=== PATIENT | female | born 1930 | race Caucasian/White ===

== ENCOUNTER 2017-02-16 05:28 | Day surgery (SDC) | payer OTHER ==
[~2017-02-16] VITALS: Ht 165.1 cm; Wt 58.9 kg
[~2017-02-16 05:28] MED LIST: ALBUTEROL SULF8.5 GM IH; APRESOLINE50 MG PO; AVAPRO150 MG PO; Anusol HC,Proctozone PR; Apresoline PO; Ascorbic Acid,Ester- PO; CALTRATE 6001 TABLET PO; CARDIZEM CD240 MG PO; CARTIA XT120 MG PO; CARTIA XT240 MG PO; CENTRUM SILVER1 EAC3 PO; COMBIVENT200 INHALA IH; COUMADIN5 MG PO; Cardizem CD,Cartia X PO; Coumadin Protocol PO; Coumadin,Jantoven PO; Cozaar PO; Dulcolax PO; DuoNeb IH; FLEXERIL10 MG PO; FUROSEMIDE20 MG PO; Folvite PO; HYDROCHLOROTHIA50 MG PO; LASIX20 MG PO; LORTAB 5-500 T1 EACH PO; LYRICA75 MG PO; Levaquin PO; Levothroid,Synthroid PO; Lovenox SC; MIRALAX17 GM PO; MUCUS RELIEF600 MG PO; Oscal 500 w/Vitamin PO; PRAVACHOL20 MG PO; ROBAXIN500 MG PO; ROLAIDS PO; STIOLTO RESPIMAT4 GM IH; STOOL SOFTENER1 EAC2 PO; STOOL SOFTENER100 M1 PO; SYNTHROID112 MCG PO; Senokot S,Pericolace PO; TESSALON PERLE100 MG PO; TOPROL XL100 MG PO; TYLENOL EXTRA500 MG PO; TYLENOL REGULA325 MG PO; Theragran PO; Toprol XL PO; Tylenol Extra Streng PO; ULTRAM50 MG PO; Ultram PO; XALATAN2.5 ML BOTH EYES; Xalatan 0.005% Ophth BOTH EYES; ZANTAC150 MG PO; ZITHROMAX250 MG PO
[2017-02-16 06:00] VITALS: BP 186/93
[2017-02-16 07:05] LABS: INTER. NORMALIZED RATIO 1.6; PROTHROMBIN TIME 17.9 SEC (10.2-12.9)
[2017-02-16 09:33] VITALS: BP 174/84
[2017-02-16 10:15] VITALS: BP 132/96
== END 2017-02-16 10:25 | disposition home or self-care (01) ==
LOC: SDC 05:28
PROVIDERS: Ophthalmology
DX: H43.11 Vitreous hemorrhage, right eye (principal); H57.8 Other specified disorders of eye and adnexa; J44.9 Chronic obstructive pulmonary disease, unspecified; I10 Essential (primary) hypertension; E03.9 Hypothyroidism, unspecified; K21.9 Gastro-esophageal reflux disease without esophagitis; I48.91 Unspecified atrial fibrillation; E78.5 Hyperlipidemia, unspecified; Z79.01 Long term (current) use of anticoagulants
CPT/HCPCS: 85610; J0690; J0713; J2405; J2795; J3300

== ENCOUNTER 2017-04-04 12:04 | Inpatient (IN) | payer OTHER ==
[~2017-04-04] VITALS: Ht 167.6 cm; Wt 61.7 kg
[~2017-04-04 12:04] MED LIST changes: +SYNTHROID125 MCG PO
[2017-04-04 14:18] LABS: BASOPHIL (%) 0.5 % (0-1); EOSINOPHIL (%) 1.7 % (0-5); EOSINOPHIL COUNT 0.1 K/uL (0-0.3); HEMATOCRIT 34.8 % (36.0-46.0); IMMATURE GRANULOCYTE (%) 2.6 % (0.0-0.7); LYMPHOCYTE (%) 9.6 % (15-42); LYMPHOCYTE COUNT 0.8 K/uL (1.0-2.8); MCH 33.8 PG (29.0-34.0); MCHC 34.5 G/DL (30.0-36.0); MONOCYTE (%) 9.4 % (3-12); MONOCYTE COUNT 0.7 K/uL (0-0.8); NEUTROPHIL (%) 76.2 % (45-76); NEUTROPHIL COUNT 5.9 K/uL (1.8-6.4); PLATELET COUNT 155 K/uL (156-360); RBC DIS.WIDTH-CV 17.4 % (11.8-14.6); RED BLOOD COUNT 3.55 M/uL (3.80-5.20); WHITE BLOOD COUNT 7.8 K/uL (4.1-10.2)
[2017-04-04 14:27] LABS: ALBUMIN 3.9 g/dL (3.2-4.8); CHLORIDE 91 mEq/L (99-109); INTER. NORMALIZED RATIO 2.4; POTASSIUM 4.2 mEq/L (3.7-5.4); PTT 34.5 SEC (25-37); SODIUM 127 mEq/L (136-147)
[2017-04-04 14:28] LABS: GLUCOSE 120 mg/dL (70-99)
[2017-04-04 14:29] LABS: TOTAL PROTEIN 6.7 g/dL (6.4-8.3)
[2017-04-04 14:32] LABS: ALKALINE PHOSPHATASE 94 IU/L (3-129); CREATININE 0.6 mg/dL (0.6-1.3); GFR ESTIMATE (CALCULATED) > 59 mL/min/
[2017-04-04 14:33] LABS: UREA NITROGEN (BUN) 13 mg/dL (9-23)
[2017-04-04 14:34] LABS: AST (GOT) 23 IU/L (2-34)
[2017-04-04 14:35] LABS: ALT (GPT) 16 IU/L (3-49)
[2017-04-04 14:38] LABS: TROP-I INTERPRETATION NEGATIVE; TROPONIN-I < 0.01 ng/mL (0.0-0.30)
[2017-04-04 14:59] LABS: APPEARANCE CLEAR ((CLEAR)); BILIRUBIN NEGATIVE; BLOOD NEGATIVE; COLOR STRAW ((YELLOW)); GLUCOSE (STRIP) NEGATIVE; KETONES NEGATIVE; LEUKOCYTES NEGATIVE; NITRITE NEGATIVE; PROTEIN (STRIP) NEGATIVE; SPECIFIC GRAVITY 1.009 (1.000-1.030); UCUL ADDED? NO; UROBILINOGEN 0.2 MG/DL (0.2-1.0)
[2017-04-04 15:52] LABS: ALBUMIN 3.8 g/dL (3.2-4.8); CHLORIDE 92 mEq/L (99-109); SODIUM 126 mEq/L (136-147)
[2017-04-04 15:54] LABS: GLUCOSE 135 mg/dL (70-99)
[2017-04-04 15:55] LABS: TOTAL PROTEIN 6.5 g/dL (6.4-8.3)
[2017-04-04 15:56] LABS: TOTAL BILIRUBIN 1.3 mg/dL (0.0-1.0)
[2017-04-04 15:58] LABS: ALKALINE PHOSPHATASE 91 IU/L (3-129); CREATININE 0.6 mg/dL (0.6-1.3); GFR ESTIMATE (CALCULATED) > 59 mL/min/
[2017-04-04 15:59] LABS: UREA NITROGEN (BUN) 11 mg/dL (9-23)
[2017-04-04 16:00] LABS: AST (GOT) 21 IU/L (2-34); DIRECT BILIRUBIN 0.5 mg/dL (0.0-0.3)
[2017-04-04 16:01] LABS: ALT (GPT) 16 IU/L (3-49)
[2017-04-04] MEDS ORDERED: DILTIAZEM 24HR240 MG PO (20:35)
[2017-04-04] MEDS ORDERED: LATANOPROST2.5 ML BOTH EYES (20:36)
[2017-04-04] MEDS ORDERED: COMBIGAN O20 DROP/5 RIGHT EYE (20:36)
[2017-04-04] MEDS ORDERED: IRBESARTAN150 MG PO (20:36)
[2017-04-04] MEDS ORDERED: WARFARIN SODIUM5 MG PO (20:37)
[2017-04-04] MEDS ORDERED: METOPROLOL SUC100 MG PO (20:37)
[2017-04-04] MEDS ORDERED: FLONASE16 G1 BOTH NARES (20:43)
[2017-04-04 20:57] VITALS: BP 176/110
[2017-04-04 22:37] VITALS: BP 169/83
[2017-04-05] VITALS (7 sets, daily range): BP systolic 134–194; BP diastolic 82–94
[2017-04-05 03:05] LABS: CHLORIDE 84 mEq/L (99-109); POTASSIUM 3.2 mEq/L (3.7-5.4); SODIUM 127 mEq/L (136-147)
[2017-04-05 03:07] LABS: GLUCOSE 159 mg/dL (70-99)
[2017-04-05 03:11] LABS: CREATININE 0.6 mg/dL (0.6-1.3); GFR ESTIMATE (CALCULATED) > 59 mL/min/; UREA NITROGEN (BUN) 13 mg/dL (9-23)
[2017-04-05 06:49] LABS: HEMATOCRIT 34.2 % (36.0-46.0); HEMOGLOBIN 11.9 G/DL (11.9-15.5); MCH 33.1 PG (29.0-34.0); MCHC 34.8 G/DL (30.0-36.0); MCV 95.3 FL (83-99); PLATELET COUNT 154 K/uL (156-360); RBC DIS.WIDTH-CV 16.9 % (11.8-14.6); RBC DIS.WIDTH-SD 59.6 % (39-53); RED BLOOD COUNT 3.59 M/uL (3.80-5.20); WHITE BLOOD COUNT 6.3 K/uL (4.1-10.2)
[2017-04-05 07:01] LABS: INTER. NORMALIZED RATIO 2.6
[2017-04-05 07:18] LABS: CHLORIDE 83 MEQ/L (99-109); CREATININE 0.6 MG/DL (0.6-1.3); GFR ESTIMATE (CALCULATED) > 59 mL/min/; GLUCOSE 184 mg/dL (70-99); POTASSIUM 3.3 MEQ/L (3.7-5.4); SODIUM 127 MEQ/L (136-147); UREA NITROGEN (BUN) 12 mg/dL (9-23)
[2017-04-05 11:09] LABS: HEPATITIS B SURFACE ANTIGEN Nonreactive
[2017-04-05 11:10] LABS: ANTI-HEPATITIS A VIRUS (IGM) Nonreactive; HEPATITIS C ANTIBODY Nonreactive
[2017-04-05 11:12] LABS: ANTI-HEPATITIS B CORE (IGM) Nonreactive
[2017-04-05 12:42] LABS: MAGNESIUM 1.5 mg/dl (1.3-2.7)
[2017-04-06 03:59] VITALS: BP 135/69
[2017-04-06 06:19] LABS: BASOPHIL (%) 0.2 % (0-1); EOSINOPHIL (%) 0 % (0-5); HEMATOCRIT 33.3 % (36.0-46.0); HEMOGLOBIN 11.6 G/DL (11.9-15.5); IMMATURE GRANULOCYTE (%) 1.8 % (0.0-0.7); LYMPHOCYTE (%) 5.6 % (15-42); LYMPHOCYTE COUNT 0.8 K/uL (1.0-2.8); MCH 34.4 PG (29.0-34.0); MCHC 34.8 G/DL (30.0-36.0); MCV 98.8 FL (83-99); MONOCYTE (%) 2.7 % (3-12); MONOCYTE COUNT 0.4 K/uL (0-0.8); NEUTROPHIL (%) 89.7 % (45-76); NRBC (%) 0.2 /100 WBC (0-0); PLATELET COUNT 157 K/uL (156-360); RBC DIS.WIDTH-CV 17.2 % (11.8-14.6); RBC DIS.WIDTH-SD 61.9 % (39-53); RED BLOOD COUNT 3.37 M/uL (3.80-5.20); WHITE BLOOD COUNT 13.3 K/uL (4.1-10.2)
[2017-04-06 06:44] LABS: INTER. NORMALIZED RATIO 3.5
[2017-04-06 06:50] LABS: ALBUMIN 3.7 G/DL (3.2-4.8); ALKALINE PHOSPHATASE 73 IU/L (3-129); ALT (GPT) 14 IU/L (3-49); AST (GOT) 18 IU/L (2-34); CHLORIDE 86 MEQ/L (99-109); CREATININE 0.6 MG/DL (0.6-1.3); GFR ESTIMATE (CALCULATED) > 59 mL/min/; GLUCOSE 155 mg/dL (70-99); SODIUM 127 MEQ/L (136-147); TOTAL PROTEIN 5.8 G/DL (6.4-8.3); UREA NITROGEN (BUN) 20 mg/dL (9-23)
[2017-04-06 07:07] LABS: POTASSIUM 4.6 MEQ/L (3.7-5.4)
[2017-04-06 07:54] LABS: TOTAL BILIRUBIN 1.4 MG/DL (0.0-1.0)
[2017-04-06 08:20] VITALS: BP 150/72
[2017-04-06 12:08] VITALS: BP 151/80
[2017-04-06 15:54] VITALS: BP 130/70
[2017-04-06 19:00] VITALS: BP 141/70
[2017-04-06 23:10] VITALS: BP 145/81
[2017-04-07 03:40] VITALS: BP 139/62
[2017-04-07 07:14] LABS: BASOPHIL (%) 0.4 % (0-1); BASOPHIL COUNT 0.1 K/uL (0-0.1); EOSINOPHIL (%) 0 % (0-5); HEMATOCRIT 36.8 % (36.0-46.0); HEMOGLOBIN 12.3 G/DL (11.9-15.5); LYMPHOCYTE (%) 6.1 % (15-42); LYMPHOCYTE COUNT 1.4 K/uL (1.0-2.8); MCH 33.3 PG (29.0-34.0); MCHC 33.4 G/DL (30.0-36.0); MCV 99.7 FL (83-99); MONOCYTE (%) 2.7 % (3-12); MONOCYTE COUNT 0.6 K/uL (0-0.8); NEUTROPHIL (%) 88.8 % (45-76); NEUTROPHIL COUNT 20.9 K/uL (1.8-6.4); NRBC (%) 0.1 /100 WBC (0-0); RBC DIS.WIDTH-CV 17.4 % (11.8-14.6); RBC DIS.WIDTH-SD 64.2 % (39-53); RED BLOOD COUNT 3.69 M/uL (3.80-5.20); WHITE BLOOD COUNT 23.5 K/uL (4.1-10.2)
[2017-04-07 07:17] LABS: PLATELET COUNT 233 K/uL (156-360)
[2017-04-07 07:20] VITALS: BP 153/93
[2017-04-07 07:21] LABS: ALBUMIN 3.9 G/DL (3.2-4.8); ALKALINE PHOSPHATASE 74 IU/L (3-129); ALT (GPT) 15 IU/L (3-49); AST (GOT) 18 IU/L (2-34); CHLORIDE 85 MEQ/L (99-109); CREATININE 0.7 MG/DL (0.6-1.3); GFR ESTIMATE (CALCULATED) > 59 mL/min/; GLUCOSE 165 mg/dL (70-99); POTASSIUM 5.4 MEQ/L (3.7-5.4); SODIUM 127 MEQ/L (136-147); TOTAL PROTEIN 6.1 G/DL (6.4-8.3); UREA NITROGEN (BUN) 24 mg/dL (9-23)
[2017-04-07 08:09] LABS: INTER. NORMALIZED RATIO 4.8
[2017-04-07 10:54] VITALS: BP 122/94
[2017-04-07 11:25] LABS: HEPATITIS C ANTIBODY Nonreactive
[2017-04-07 15:50] VITALS: BP 133/72
[2017-04-07 20:00] VITALS: BP 119/65
[2017-04-08 00:26] VITALS: BP 125/73
[2017-04-08 04:43] VITALS: BP 142/71
[2017-04-08 07:59] LABS: HEMATOCRIT 33.9 % (36.0-46.0); HEMOGLOBIN 11.1 G/DL (11.9-15.5); MCH 32.7 PG (29.0-34.0); MCHC 32.7 G/DL (30.0-36.0); PLATELET COUNT 180 K/uL (156-360); RBC DIS.WIDTH-CV 17.5 % (11.8-14.6); RBC DIS.WIDTH-SD 64.2 % (39-53); RED BLOOD COUNT 3.39 M/uL (3.80-5.20); WHITE BLOOD COUNT 13.1 K/uL (4.1-10.2)
[2017-04-08 08:09] VITALS: BP 164/60
[2017-04-08 08:12] LABS: CHLORIDE 90 MEQ/L (99-109); CREATININE 0.7 MG/DL (0.6-1.3); GFR ESTIMATE (CALCULATED) > 59 mL/min/; GLUCOSE 136 mg/dL (70-99); POTASSIUM 4.7 MEQ/L (3.7-5.4); UREA NITROGEN (BUN) 24 mg/dL (9-23)
[2017-04-08 08:13] LABS: CARBON DIOXIDE (BICARBONATE) > 40.0 MEQ/L (20-31); SODIUM 136 MEQ/L (136-147)
[2017-04-08 08:29] LABS: ABS NEUTROPHIL COUNT 11.6; ANISOCYTOSIS 1+; BAND NEUTROPHILS 1.7 % (0-8.0); EOSINOPHIL ABS CT 0; LYMPHOCYTES 5.2 % (15.0-45.0); MACROCYTES 2+; METAMYELOCYTES 0.9 %; MICROCYTOSIS 1+; MONOCYTES 3.5 % (0-9.0); MYELOCYTES 1.7 %; OVALOCYTES 1+
[2017-04-08 11:20] LABS: INTER. NORMALIZED RATIO 5.2
[2017-04-08 11:43] VITALS: BP 138/81
[2017-04-08 13:04] LABS: IMM.RETIC FRACTION 13.4 % (3-19); RETIC HGB EQUIVALENT 37.6 (28-36); RETICULOCYTE COUNT 1.9 % (0.5-1.8)
[2017-04-08 14:28] LABS: FERRITIN 190 NG/ML (10-291); IRON 143 MCG/DL (35-150); TRANSFERRIN (TIBC) 225.8 mg/dL (215-380); TRANSFERRIN SATUR. 63 % (20-55)
[2017-04-08 14:29] LABS: FOLIC ACID (FOLATE) > 22.0 NG/ML (5.0-22.0)
[2017-04-08 15:34] VITALS: BP 127/74
[2017-04-08 19:10] VITALS: BP 125/75
[2017-04-09 00:13] VITALS: BP 160/97
[2017-04-09 01:00] VITALS: BP 145/78
[2017-04-09 04:00] VITALS: BP 132/78
[2017-04-09 06:47] LABS: INTER. NORMALIZED RATIO 3.7
[2017-04-09 07:21] LABS: CHLORIDE 93 MEQ/L (99-109); CREATININE 0.8 MG/DL (0.6-1.3); GFR ESTIMATE (CALCULATED) > 59 mL/min/; GLUCOSE 108 mg/dL (70-99); POTASSIUM 4.3 MEQ/L (3.7-5.4); SODIUM 138 MEQ/L (136-147); UREA NITROGEN (BUN) 28 mg/dL (9-23)
[2017-04-09 07:40] VITALS: BP 168/86
[2017-04-09 15:33] VITALS: BP 152/83
[2017-04-09 20:00] VITALS: BP 122/77
[2017-04-10 00:02] VITALS: BP 120/72
[2017-04-10 06:53] LABS: INTER. NORMALIZED RATIO 2.3
[2017-04-10 07:58] VITALS: BP 178/74
[2017-04-10 16:04] VITALS: BP 120/67
[2017-04-11 00:07] VITALS: BP 163/81
[2017-04-11 07:35] LABS: HEMATOCRIT 34.5 % (36.0-46.0); HEMOGLOBIN 11.6 G/DL (11.9-15.5); MCH 33.9 PG (29.0-34.0); MCHC 33.6 G/DL (30.0-36.0); MCV 100.9 FL (83-99); PLATELET COUNT 148 K/uL (156-360); RBC DIS.WIDTH-CV 17.6 % (11.8-14.6); RBC DIS.WIDTH-SD 64.5 % (39-53); RED BLOOD COUNT 3.42 M/uL (3.80-5.20); WHITE BLOOD COUNT 12.4 K/uL (4.1-10.2)
[2017-04-11 07:45] LABS: INTER. NORMALIZED RATIO 1.7
[2017-04-11 08:09] LABS: ABS NEUTROPHIL COUNT 8.1; ANISOCYTOSIS 1+; ATYPICAL LYMPHOCYTE 3.5 %; BAND NEUTROPHILS 0.9 % (0-8.0); EOSINOPHIL ABS CT 0.1; EOSINOPHILS 0.9 % (0-5.0); LYMPHOCYTES 14.8 % (15.0-45.0); MACROCYTES 2+; MONOCYTES 7.8 % (0-9.0); MYELOCYTES 7.8 %; OVALOCYTES 1+; PLAT.SUFFICIENCY DECREASED; POIKILOCYTOSIS 1+; SEG.NEUTROPHILS 64.3 % (46.0-76.0)
[2017-04-11 08:15] VITALS: BP 161/92
[2017-04-11 08:36] LABS: CHLORIDE 90 MEQ/L (99-109); CREATININE 0.7 MG/DL (0.6-1.3); GFR ESTIMATE (CALCULATED) > 59 mL/min/; GLUCOSE 95 mg/dL (70-99); POTASSIUM 4.3 MEQ/L (3.7-5.4); SODIUM 136 MEQ/L (136-147); UREA NITROGEN (BUN) 23 mg/dL (9-23)
[2017-04-11 08:42] LABS: CARBON DIOXIDE (BICARBONATE) > 40.0 MEQ/L (20-31)
[2017-04-11] MEDS ORDERED: ADVAIR HFA120 INHALA IH (12:42)
[2017-04-11] MEDS ORDERED: SODIUM CHLORIDE1 G1 PO (12:42)
[2017-04-11] MEDS ORDERED: FUROSEMIDE20 MG PO (12:42)
[2017-04-11] MEDS ORDERED: PREDNISONE10 MG PO (12:42)
[2017-04-11] MEDS ORDERED: PROTONIX40 MG PO (12:42)
[2017-04-11 16:06] VITALS: BP 145/76
== END 2017-04-11 17:51 | disposition home health service (06) | DRG 193 ==
LOC: EME 12:04 → 2EAST 17:48 → EDOF 17:48 → ENRESERV 17:52 → 2EAST 20:38
PROVIDERS: Emergency Medicine; Hospitalist; Internal Medicine Nephrology
DX: J15.9 Unspecified bacterial pneumonia (principal); J96.01 Acute respiratory failure with hypoxia; J44.0 Chronic obstructive pulmonary disease with (acute) lower respiratory infection; J20.9 Acute bronchitis, unspecified; J44.1 Chronic obstructive pulmonary disease with (acute) exacerbation; I11.0 Hypertensive heart disease with heart failure; I50.32 Chronic diastolic (congestive) heart failure; E87.6 Hypokalemia; K80.20 Calculus of gallbladder without cholecystitis without obstruction; E22.2 Syndrome of inappropriate secretion of antidiuretic hormone; I27.20 Pulmonary hypertension, unspecified; E03.9 Hypothyroidism, unspecified; E78.5 Hyperlipidemia, unspecified; G89.29 Other chronic pain; M54.9 Dorsalgia, unspecified; I48.2 Chronic atrial fibrillation; K21.9 Gastro-esophageal reflux disease without esophagitis; K64.9 Unspecified hemorrhoids; Z87.891 Personal history of nicotine dependence; Z79.01 Long term (current) use of anticoagulants; Z88.0 Allergy status to penicillin
CPT/HCPCS: 70450; 71045; 71250; 76705; 76770; 80048; 80048 91; 80053; 80074; 80076; 81003; 82436; 82533 91; 82607; 82728; 82746; 83540; 83605; 83735; 83880; 83930; 83935; 84133; 84300; 84466; 84484; 85025; 85027; 85046; 85610; 85730; 86803; 87040; 87070; 87106; 87205; 87502; 93005; 93306; 94640; 94640 76; 94799; 97530 GO; 99202; 99281; 99285; C9113; J0696; J1940; J1956; J2405; J2930; J7512

== ENCOUNTER 2017-10-17 10:39 | Emergency (ER) | payer OTHER ==
[~2017-10-17] VITALS: Ht 165.1 cm; Wt 64.9 kg
[~2017-10-17 10:39] MED LIST changes: +ADVAIR HFA120 INHALA IH; +COMBIGAN O20 DROP/5 RIGHT EYE; +DILTIAZEM 24HR240 MG PO; +FLONASE16 G1 BOTH NARES; +IRBESARTAN150 MG PO; +LATANOPROST2.5 ML BOTH EYES; +METOPROLOL SUC100 MG PO; +PREDNISONE10 MG PO; +PROTONIX40 MG PO; +SODIUM CHLORIDE1 G1 PO; +WARFARIN SODIUM5 MG PO
[2017-10-17 11:18] LABS: HEMATOCRIT 32.5 % (36.0-46.0); HEMOGLOBIN 11.3 G/DL (11.9-15.5); MCH 35.3 PG (29.0-34.0); MCHC 34.8 G/DL (30.0-36.0); MCV 101.6 FL (83-99); PLATELET COUNT 118 K/uL (156-360); RBC DIS.WIDTH-CV 17.7 % (11.8-14.6); RBC DIS.WIDTH-SD 65.9 % (39-53); WHITE BLOOD COUNT 6.6 K/uL (4.1-10.2)
[2017-10-17 11:32] LABS: CHLORIDE 98 mEq/L (99-109); POTASSIUM 4.2 mEq/L (3.7-5.4); SODIUM 133 mEq/L (136-147)
[2017-10-17 11:33] LABS: GLUCOSE 97 mg/dL (70-99)
[2017-10-17 11:37] LABS: CREATININE 0.8 mg/dL (0.6-1.3); GFR ESTIMATE (CALCULATED) > 59 mL/min/
[2017-10-17 11:38] LABS: UREA NITROGEN (BUN) 12 mg/dL (9-23)
[2017-10-17 14:02] VITALS: BP 175/108
== END 2017-10-17 14:03 | disposition home or self-care (01) ==
LOC: EME 10:39
DX: R19.7 Diarrhea, unspecified (principal); R11.0 Nausea; I10 Essential (primary) hypertension; Z79.01 Long term (current) use of anticoagulants; Z87.440 Personal history of urinary (tract) infections; Z87.891 Personal history of nicotine dependence
CPT/HCPCS: 80048; 81003; 85027; 99281; 99284